=== PATIENT | female | born 1990 | race Caucasian/White ===

== ENCOUNTER 2016-09-10 16:55 | Emergency (ER) | payer OTHER ==
[2016-09-10 18:11] LABS: PH,URINE 6.5 (5.0-8.0); URINE BILIRUBIN NEGATIVE (NEGATIVE); URINE BLOOD NEGATIVE (NEGATIVE); URINE GLUCOSE (UA) NEGATIVE (NEGATIVE); URINE LEUKOCYTE ESTERASE NEGATIVE (NEGATIVE); URINE NITRITE NEGATIVE (NEGATIVE); URINE PROTEIN NEGATIVE (NEGATIVE); URINE UROBILINOGEN NORMAL (0-1 mg/dl)
[2016-09-10 18:20] LABS: URINE APPEARANCE CLOUDY; URINE COLOR YELLOW
[2016-09-10 18:33] LABS: URINE BACTERIA 3+; URINE RBC 0-1 /hpf
[2016-09-10] MEDS ORDERED: ONDANSETRON 4 MG/2ML 2 ML VIAL ONE (18:49)
[2016-09-10] MEDS ORDERED: SODIUM CHLORIDE 0.9% 1,000 ML ONE (18:49)
[2016-09-10 19:22] LABS: ABSOLUTE NEUTROPHIL COUNT 11.1 K/mm3 (1.8-7.7); BASO % 0.3 % (0.2-1.0); EOS # 0.1 (0.0-0.5); EOS % 0.8 % (0.9-2.9); HEMATOCRIT 39.9 % (37.0-47.0); HEMOGLOBIN 13.2 gm/l (12.0-16.0); IMM NEUT # 0.1 K/mm3 (0-0.2); IMM NEUT% 0.5 % (0-1); LYMPH # 1.3 (1.0-4.8); LYMPH % 9.6 % (15-45); MEAN CELL VOLUME 99.3 fl (81.0-99.0); MEAN CORPUSCULAR HEMOGLOBIN 32.8 pg (27.0-31.0); MEAN CORPUSCULAR HGB CONC 33.1 g/dl (33.0-37.0); MEAN PLATELET VOLUME 12.3 fl (7.4-10.4); MONO # 0.6 (0.0-0.8); MONO % 4.6 % (4-12); NEUT % 84.2 % (43-75); PLATELET COUNT 139 K/mm3 (130-400); RED CELL DISTRIBUTION WIDTH 12.6 % (11.5-14.5)
[2016-09-10 19:37] LABS: CALCIUM 10.5 mg/dL (8.6-10.3)
== END 2016-09-10 20:28 | disposition home or self-care (01) ==
LOC: ED 16:55
DX: R53.1 Weakness (principal); D72.829 Elevated white blood cell count, unspecified; F41.9 Anxiety disorder, unspecified; R11.10 Vomiting, unspecified
CPT/HCPCS: 85025; 80048; 81001; 99283 ×2; 96374; 93005; J2405; J7030